=== PATIENT | female | born 1960 | race Caucasian/White ===

== ENCOUNTER → 2016-09-30 | Outpatient (CLI) | payer OTHER ==
--- NOTE | 2016-09-30 09:29 | CT ---
EXAMINATION TYPE: CT abdomen wo con DATE OF EXAM: 09/30/2016 COMPARISON: NONE HISTORY: hiatal hernia CT DLP: 159.1 mGycm Automated exposure control for dose reduction was used. TECHNIQUE: Helical acquisition of images was performed from the lung bases through the top of iliac crest to include entire abdomen. CONTRAST: Performed without Oral Contrast and without IV contrast. FINDINGS: Visualized portions of the lungs are clear. There is no pleural or pericardial fluid. The h eart is not enlarged. There is no significant hiatal hernia. Within the abdomen, the liver, spleen and gallbladder are normal. Both adrenal glands are normal. There is no evidence of hydronephrosis or nephrolithiasis. Limited views of the pancreas are unremarkable. There is mild atheromatous calcification of the aorta. Visualized bowel loops are unremarkable. No free fluid and no free air is seen. No bony destructive lesion is seen. There is a sclerotic focus in the anterior aspect of the superior endplate of L4. This likely represents a bone island. IMPRESSION: 1. NO SIGNIFICANT HIATAL HERNIA. 2. NO ACUTE INFLAMMATORY ABNORMALITY.
== END | disposition home or self-care (01) ==
LOC: RADCTMAIN 08:42
PROVIDERS: ATTEND Family Medicine
DX: R10.9 Unspecified abdominal pain (principal)
CPT/HCPCS: 74150

== ENCOUNTER → 2016-10-26 | Outpatient (CLI) | payer OTHER ==
--- NOTE | 2016-10-26 14:32 | XR ---
EXAMINATION TYPE: XR chest 2V DATE OF EXAM: 10/26/2016 COMPARISON: NONE HISTORY: Chest wall pain, R07.89 TECHNIQUE: Frontal and lateral views of the chest are obtained. FINDINGS: There is no focal air space opacity, pleural effusion, or pneumothorax seen. The cardiac silhouette size is within normal limits. There is a gentle thoracic spinal curvature. The osseous st ructures are intact. IMPRESSION: No acute cardiopulmonary process.
== END | disposition home or self-care (01) ==
LOC: RADXRMAIN 13:20
PROVIDERS: ATTEND Physician Assistant
DX: R07.89 Other chest pain (principal)
CPT/HCPCS: 71020

== ENCOUNTER → 2016-12-11 | Outpatient (CLI) | payer OTHER ==
--- NOTE | 2016-12-11 09:18 | NM ---
EXAMINATION TYPE: NM gastric emptying study DATE OF EXAM: 12/11/2016 COMPARISON: NONE HISTORY: Gastroparesis Following administration of 2.1 mCi Tc 99m Sulfur Colloid with 1 scrambled egg projection images of t he abdomen were obtained 5 minutes post ingestion. When possible, both anterior and posterior project ion images were obtained to allow the calculation of the geometric mean activity. Clearance: 69 % Half-life: 63 minutes min Gastroesophagel reflux: None IMPRESSION: Gastric emptyin% Gastroesophageal reflux: None Gastric emptying normal percentage values: 30 minutes: <70% of retention (> 30% emptying) suggests abnormally fast emptying. 60 minutes: <90% retention (>10% emptying) is normal; less than 30% retention (>70% emptying) suggest s abnormally rapid empying. 90 minutes: <65% retention (> 35% emptying) is normal. 120 minutes: <60% retention (> 40% emptying) is normal. 180 minutes: <30% retention (> 70% emptying) is normal. Gastric emptying T-1/2: Solid: The normal range is 60-105 minutes Liquid only: Normal range is 10-45 minutes. Liquid only-children: At 60 minutes, normal range is 44-58 % . Liquid only-infants: At 60 minutes, normal range is 32-64 %. Additional references: Gastric Emptying Scintigraphy [email or web address]://[email or web address]
== END | disposition home or self-care (01) ==
LOC: RADNMMAIN 07:09
PROVIDERS: ATTEND Surgery
DX: R10.11 Right upper quadrant pain (principal)
CPT/HCPCS: 78264; A9541

== ENCOUNTER 2017-05-21 01:33 | Emergency (ER) | payer OTHER ==
[2017-05-21 01:40] VITALS: BP 199/111; PULSE 78; RESP 18; TEMP 98.1
[2017-05-21] MEDS ORDERED: MORPHINE SULFATE 4 MG/ML SYRINGE IM STA (01:49)
--- NOTE | 2017-05-21 01:53 | ED ---
Fall HPI - General Chief Complaint: Fall Stated Complaint: Fall-Back Pain-JOSE Time Seen by Provider: 05/21/17 01:44 Source: patient Mode of arrival: ambulatory - History of Present Illness Initial Comments: 56-year-old female patient presents to the emergency department today for evaluation of left posterior rib pain. Patient states that she had a fall on Wednesday. States that she slipped down 3 steps on her camper. States that she hit her ribs on the stairs during the fall. States that things seem to be improving over the last couple of days however today she coughed and felt a pop in her left ribs and has been having excruciating pain ever since. Patient states it hurts to take a deep breath. States that it hurts to move or twist. States that it hurts to move her left arm. She denies any hemoptysis or cough. Denies any fevers or chills. She denies any chest pain. Patient denies any headache, neck pain, dizziness, weakness, abdominal pain, nausea, vomiting, or difficulties with bowel movements or urination. - Related Data Home Medications Medication Instructions Recorded Confirmed ALPRAZolam [ALPRAZolam] 0.25 mg PO BID PRN 10/13/13 02/23/14 Atorvastatin [Lipitor] 20 mg PO HS 10/13/13 02/23/14 Previous Rx's Medication Instructions Recorded Aspirin 325 mg PO DAILY #30 tab 02/23/14 HYDROcodone/APAP 7.5-325MG [[place] 1 - 2 each PO Q6HR PRN #60 tab 02/23/14 7.5] Hydrocodone/Acetaminophen [[place] 1 tab PO Q6HR PRN #12 tab 05/21/17 5-325] Allergies Allergy/AdvReac Type Severity Reaction Status Date / Time codeine phosphate Allergy Severe Itching Verified 05/21/17 01:40 [From Tylenol-Codeine #3] tramadol Allergy Mild Itching Verified 05/21/17 01:40 Review of Systems ROS Statement: Those systems with pertinent positive or pertinent negative responses have been documented in the HPI. ROS Other: All systems not noted in ROS Statement are negative. Past Medical History Past Medical History: Hyperlipidemia Additional Past Medical History / Comment(s): knee pain History of Any Multi-Drug Resistant Organisms: None Reported Past Surgical History: Section, Hysterectomy, Orthopedic Surgery Additional Past Surgical History / Comment(s): ABDOMINALPLASTY, LEFT KNEE ARTHROSCOPIC Past Anesthesia/Blood Transfusion Reactions: Motion Sickness Past Psychological History: No Psychological Hx Reported Smoking Status: Current every day smoker Past Alcohol Use History: None Reported Past Drug Use History: Marijuana - Past Family History Mother Family Medical History: Deep Vein Thrombosis (DVT) Father Family Medical History: Cancer General Exam Limitations: no limitations General appearance: alert, in no apparent distress, other (This is a well- developed, well-nourished adult female patient in no acute distress. Vital signs upon presentation are temperature 98.1F, pulse 78, respirations 18, blood pressure 199/111, pulse ox 98% on room air.) Neck exam: Present: normal inspection, full ROM, other. Absent: tenderness, meningismus, lymphadenopathy Respiratory exam: Present: normal lung sounds bilaterally (Nontender, no step- off, no deformity to firm midline palpation of the posterior cervical spine. Full range of motion without pain or limitation.), chest wall tenderness (Left posterior chest wall tenderness). Absent: respiratory distress, wheezes, rales , rhonchi, stridor Cardiovascular Exam: Present: regular rate, normal rhythm, normal heart sounds. Absent: systolic murmur, diastolic murmur, rubs, gallop, clicks GI/Abdominal exam: Present: soft, normal bowel sounds. Absent: distended, tenderness, guarding, rebound, rigid Neurological exam: Present: alert, oriented X3, CN II-XII intact Psychiatric exam: Present: normal affect, normal mood Skin exam: Present: warm, dry, intact, normal color. Absent: rash Course Vital Signs 05/21/17 01:36 Temperature 98.1 F Pulse Rate 78 Respiratory 18 Rate Blood Pressure 199/111 O2 Sat by Pulse 98 Oximetry Medical Decision Making - Medical Decision Making 56-year-old female patient presents to the emergency department today for evaluation of left posterior rib pain. Physical examination did reveal tenderness over the left lateral posterior lower ribs. Lungs are clear to auscultation with good air movement. Chest x-ray with views of the ribs did show a nondisplaced left lateral 10th rib fracture. Lungs showed no acute cardiopulmonary process. Did discuss findings with the patient. We'll provide her with incentive spirometry education. We will give her pain medication. She is educated regarding return parameters. She is instructed to follow-up with her primary care physician for recheck in 1-2 days. She is instructed to return here immediately for any new, worsening, or concerning symptoms. She verbalizes understanding and agrees with this plan. - Lab Data Lab Results 05/21/17 Range/Units 01:52 Urine Color Yellow Urine Appearance Clear (Clear) Urine pH 6.0 (5.0-8.0) Ur Specific [place] 1.012 (1.001-1.035) Urine Protein Negative (Negative) Urine Glucose (UA) Negative (Negative) Urine Ketones Negative (Negative) Urine Blood Negative (Negative) Urine Nitrite Negative (Negative) Urine Bilirubin Negative (Negative) Urine Urobilinogen <2.0 (<2.0) mg/dL Ur Leukocyte Esterase Negative (Negative) - Radiology Data Radiology results: report reviewed, image reviewed 5 views of the chest and left ribs are obtained. Findings show no heart failure nor confluent pneumonic infiltrate. There is no sign of pleural effusion or pneumothorax. There is nondisplaced fracture of the lateral left 10th rib. Impression by Dr. Lynn shows nondisplaced fracture of the left 10th rib. No cardio pulmonary disease. Disposition Clinical Impression: Rib fracture Disposition: HOME SELF-CARE Condition: Good Instructions: Rib Fracture (ED) Additional Instructions: Use incentive spirometer 10 times an hour while awake. Splint painful area with a pillow when coughing or deep breathing. Follow-up with your primary care physician for recheck in 1-2 days. Return here immediately for any new, worsening, or concerning symptoms. Prescriptions: Hydrocodone/Acetaminophen [[place] 5-325] 1 tab PO Q6HR PRN #12 tab PRN Reason: Pain Referrals: Fabricio Fernandez DO [Primary Care Provider] - 1-2 days Time of Disposition: 02:36
[2017-05-21 02:20] LABS: Appearance,Urine Clear (Clear); Bilirubin,Urine Negative (Negative); Blood,Urine Negative (Negative); Color,Urine Yellow; Glucose,Urine (UA) Negative (Negative); Ketones,Urine Negative (Negative); Leukocyte Esterase,Urine Negative (Negative); Protein,Urine Negative (Negative); Specific Gravity,Urine 1.012 (1.001-1.035); Urobilinogen,Urine <2.0 mg/dL (<2.0)
--- NOTE | 2017-05-21 02:27 | XR ---
EXAMINATION TYPE: XR ribs LT w pa chest xray DATE OF EXAM: 05/21/2017 COMPARISON: NONE HISTORY: Fell down the stairs. Chest pain. TECHNIQUE: 5 views FINDINGS: There is no heart failure nor confluent pneumonic infiltrate. There is no sign of pleural e ffusion or pneumothorax. There is nondisplaced fracture of the lateral left 10th rib. IMPRESSION: Nondisplaced fracture left 10th rib. No cardiopulmonary disease.
== END 2017-05-21 02:52 | disposition home or self-care (01) ==
LOC: EC 01:33
DX: S22.32XA Fracture of one rib, left side, initial encounter for closed fracture (principal); E78.5 Hyperlipidemia, unspecified; F17.200 Nicotine dependence, unspecified, uncomplicated; Z79.899 Other long term (current) drug therapy; Z88.5 Allergy status to narcotic agent; W10.9XXA Fall (on) (from) unspecified stairs and steps, initial encounter
CPT/HCPCS: 81003; 71101; 99283; 96372; J2270

== ENCOUNTER 2018-06-29 00:04 | Emergency (ER) | payer OTHER ==
[2018-06-29 00:14] VITALS: RESP 18
[2018-06-29 00:35] LABS: Appearance,Urine Turbid (Clear); Bacteria,Urine Many /hpf; Bilirubin,Urine Negative (Negative); Blood,Urine Moderate (Negative); Color,Urine Dark Red; Glucose,Urine (UA) Negative (Negative); Ketones,Urine Trace (Negative); Leukocyte Esterase,Urine Large (Negative); Nitrite,Urine Negative (Negative); Protein,Urine 3+ (Negative); RBC,Urine >182 /hpf (0-5)
[2018-06-29 00:37] LABS: Specific Gravity,Urine 1.026 (1.001-1.035)
[2018-06-29] MEDS ORDERED: LEVOFLOXACIN 750 MG TAB PO STA (02:11)
[2018-06-29] MEDS ORDERED: PHENAZOPYRIDINE 100 MG TAB PO STA (02:20)
--- NOTE | 2018-06-29 02:23 | ED ---
Female Urogenital HPI - General Chief complaint: Urogenital Stated complaint: poss UTI Time Seen by Provider: 06/29/18 00:11 Source: EMS Mode of arrival: EMS Limitations: no limitations - History of Present Illness Initial comments: This patient is a 58-year-old woman who presents to be evaluated for suprapubic discomfort as well as dysuria. The patient states that she was in her usual state of health until Wednesday morning when she noted she was having urinary frequency. The following day she started having urgency, dysuria, and that over the course of the day developed hematuria as well. She states this feels similar to previous urinary tract infections that she has had. She has not had systemic symptoms, no fever or chills, chest pain, palpitations, lightheadedness. Patient states that she feels like she did pass out once due to the pain associated with urination. MD Complaint: dysuria Onset/Timin -: days(s) Location: suprapubic Radiation: non-radiating Severity: moderate Quality: burning Consistency: constant Improves with: none Worsens with: urination - Related Data Home Medications Medication Instructions Recorded Confirmed ALPRAZolam 0.25 mg PO BID PRN 10/13/13 02/23/14 Atorvastatin [Lipitor] 20 mg PO HS 10/13/13 02/23/14 Previous Rx's Medication Instructions Recorded Aspirin 325 mg PO DAILY #30 tab 02/23/14 HYDROcodone/APAP 7.5-325MG [[place] 1 - 2 each PO Q6HR PRN #60 tab 02/23/14 7.5] Hydrocodone/Acetaminophen [[place] 1 tab PO Q6HR PRN #12 tab 05/21/17 5-325] Ondansetron [Zofran ODT] 4 mg PO Q8HR PRN #10 tab 05/21/17 Levofloxacin 750 mg PO DAILY #6 tablet 06/29/18 Phenazopyridine [Pyridium] 100 mg PO TID #6 tablet 06/29/18 Allergies Allergy/AdvReac Type Severity Reaction Status Date / Time codeine phosphate Allergy Severe Itching Verified 06/29/18 00:14 [From Tylenol-Codeine #3] tramadol Allergy Mild Itching Verified 06/29/18 00:14 Review of Systems ROS Statement: Those systems with pertinent positive or pertinent negative responses have been documented in the HPI. ROS Other: All systems not noted in ROS Statement are negative. Constitutional: Denies: fever, chills Respiratory: Denies: cough, dyspnea Cardiovascular: Denies: chest pain, palpitations, edema Gastrointestinal: Reports: as per HPI, abdominal pain. Denies: nausea, vomiting, diarrhea, constipation Genitourinary: Reports: urgency, dysuria, frequency, hematuria Musculoskeletal: Denies: back pain Skin: Denies: rash Past Medical History Past Medical History: Hyperlipidemia Additional Past Medical History / Comment(s): knee pain, History of Any Multi-Drug Resistant Organisms: None Reported Past Surgical History: Section, Hysterectomy, Orthopedic Surgery Additional Past Surgical History / Comment(s): ABDOMINALPLASTY, LEFT KNEE ARTHROSCOPIC, Past Anesthesia/Blood Transfusion Reactions: Motion Sickness Past Psychological History: No Psychological Hx Reported Smoking Status: Former smoker Past Alcohol Use History: Rare Past Drug Use History: Marijuana - Past Family History Mother Family Medical History: Deep Vein Thrombosis (DVT) Father Family Medical History: Cancer General Exam Limitations: no limitations General appearance: alert, in no apparent distress Respiratory exam: Present: normal lung sounds bilaterally. Absent: respiratory distress, wheezes, rales, rhonchi, stridor Cardiovascular Exam: Present: regular rate, normal rhythm, normal heart sounds. Absent: systolic murmur, diastolic murmur, rubs, gallop GI/Abdominal exam: Present: soft. Absent: distended, tenderness, guarding, rebound, rigid, mass Extremities exam: Absent: pedal edema Skin exam: Present: warm, dry, intact, normal color. Absent: rash Course Vital Signs 06/29/18 06/29/18 00:09 02:39 Temperature 97.8 F 98.0 F Pulse Rate 90 84 Respiratory 18 18 Rate Blood Pressure 143/99 160/92 O2 Sat by Pulse 99 96 Oximetry Medical Decision Making - Medical Decision Making Patient's 58-year-old woman with history and physical exam consistent with urinary tract infection. Urinalysis confirms this. Patient started on antibiotics here as well as Pyridium for symptoms. We discussed appropriate further care and follow-up. On review of systems, the patient did mention some chronic right upper quadrant pain that she had been having what seems to be associated with food and therefore will have the patient follow up with the surgeon on-call for consideration of HIDA scan, the patient does not have any tenderness at the exam today, and the symptoms have been going on for many months. - Lab Data Lab Results 06/29/18 Range/Units 00:18 Urine Color Dark Red Urine Appearance Turbid H (Clear) Urine pH 7.0 (5.0-8.0) Ur Specific [place] 1.026 (1.001-1.035) Urine Protein 3+ H (Negative) Urine Glucose (UA) Negative (Negative) Urine Ketones Trace H (Negative) Urine Blood Moderate H (Negative) Urine Nitrite Negative (Negative) Urine Bilirubin Negative (Negative) Urine Urobilinogen 3.0 (<2.0) mg/dL Ur Leukocyte Esterase Large H (Negative) Urine RBC >182 H (0-5) /hpf Urine WBC >182 H (0-5) /hpf Urine Bacteria Many H (None) /hpf Disposition Clinical Impression: Urinary tract infection Disposition: HOME SELF-CARE Condition: Good Instructions (If sedation given, give patient instructions): Urinary Tract Infection in Women (ED) Additional Instructions: As we discussed, follow-up with Dr. Shannon regarding the possibility of your gallbladder causing the upper abdominal symptoms. Prescriptions: Levofloxacin 750 mg PO DAILY #6 tablet Phenazopyridine [Pyridium] 100 mg PO TID #6 tablet Is patient prescribed a controlled substance at d/c from ED?: No Referrals: Fabricio Fernandez DO [Primary Care Provider] - 1-2 days Terence Shannon MD [Medical Doctor] - 1-2 days
[2018-06-29 02:43] VITALS: BP 160/92; PULSE 84; TEMP 98
== END 2018-06-29 02:43 | disposition home or self-care (01) ==
LOC: EC 00:04 → SUPCPDRO 00:04 → EC 02:43
DX: N39.0 Urinary tract infection, site not specified (principal); R10.11 Right upper quadrant pain; G89.29 Other chronic pain; E78.5 Hyperlipidemia, unspecified; Z87.891 Personal history of nicotine dependence; Z90.710 Acquired absence of both cervix and uterus; Z98.890 Other specified postprocedural states; Z79.899 Other long term (current) drug therapy; Z88.5 Allergy status to narcotic agent
CPT/HCPCS: 81001; 87086; 99284

== ENCOUNTER 2018-07-01 14:15 | Emergency (ER) | payer OTHER ==
[2018-07-01 14:26] VITALS: BP 151/85; PULSE 90; RESP 18; TEMP 97.9
--- NOTE | 2018-07-01 14:49 | ED ---
General Adult HPI - General Chief complaint: Recheck/Abnormal Lab/Rx Stated complaint: bladder infection-revisit Time Seen by Provider: 07/01/18 14:20 Source: patient, RN notes reviewed Mode of arrival: ambulatory Limitations: no limitations - History of Present Illness Initial comments: This is a 58-year-old female who presents emergency department after having had a diagnosis of urinary tract infection 2 days ago. Patient states that she ran out of Pyridium. Patient states that she should've had 3 days worth she only had 2 days worth. Patient comes back in today because she still having burning with urination now that the Pyridium is gone and she is wondering if she gets more pretty. Patient is on Levaquin and the sensitivity for the urinary tract infection is sensitive to Levaquin. She has no abdominal pain patient denies nausea vomiting diarrhea patient denies any fever patient denies any back pain. Patient's only complaint is that it hurts when she urinates. - Related Data Home Medications Medication Instructions Recorded Confirmed ALPRAZolam 0.25 mg PO BID PRN 10/13/13 02/23/14 Atorvastatin [Lipitor] 20 mg PO HS 10/13/13 02/23/14 Previous Rx's Medication Instructions Recorded Aspirin 325 mg PO DAILY #30 tab 02/23/14 HYDROcodone/APAP 7.5-325MG [[place] 1 - 2 each PO Q6HR PRN #60 tab 02/23/14 7.5] Hydrocodone/Acetaminophen [[place] 1 tab PO Q6HR PRN #12 tab 05/21/17 5-325] Ondansetron [Zofran ODT] 4 mg PO Q8HR PRN #10 tab 05/21/17 Levofloxacin 750 mg PO DAILY #6 tablet 06/29/18 Phenazopyridine [Pyridium] 100 mg PO TID #6 tablet 06/29/18 Phenazopyridine HCl [Pyridium] 200 mg PO TID 3 Days tablet 07/01/18 Allergies Allergy/AdvReac Type Severity Reaction Status Date / Time codeine phosphate Allergy Severe Itching Verified 07/01/18 14:26 [From Tylenol-Codeine #3] tramadol Allergy Mild Itching Verified 07/01/18 14:26 Review of Systems ROS Statement: Those systems with pertinent positive or pertinent negative responses have been documented in the HPI. ROS Other: All systems not noted in ROS Statement are negative. Past Medical History Past Medical History: Hyperlipidemia Additional Past Medical History / Comment(s): knee pain, History of Any Multi-Drug Resistant Organisms: None Reported Past Surgical History: Section, Hysterectomy, Orthopedic Surgery Additional Past Surgical History / Comment(s): ABDOMINALPLASTY, LEFT KNEE ARTHROSCOPIC, Past Anesthesia/Blood Transfusion Reactions: Motion Sickness Past Psychological History: No Psychological Hx Reported Smoking Status: Former smoker Past Alcohol Use History: Rare Past Drug Use History: Marijuana - Past Family History Mother Family Medical History: Deep Vein Thrombosis (DVT) Father Family Medical History: Cancer General Exam - General Exam Comments Initial Comments: GENERAL: Patient is well-developed and well-nourished. Patient is nontoxic and well- hydrated and is in mild distress. ENT: Neck is soft and supple. Moist mucous membranes. EYES: The sclera were anicteric and conjunctiva were pink and moist. ABDOMEN: Soft and nontender with normal bowel sounds. No palpable organomegaly was noted. There is no palpable pulsatile mass. SKIN: Skin is clear with no lesions or rashes and otherwise unremarkable. NEUROLOGIC: Patient is alert and oriented x3. Cranial nerves II through XII are grossly intact. Motor and sensory are also intact. Normal speech, volume and content. MUSCULOSKELETAL: Normal extremities with adequate strength and full range of motion. LYMPHATICS: No significant lymphadenopathy is noted PSYCHIATRIC: Normal psychiatric evaluation. Limitations: no limitations Course Vital Signs 07/01/18 14:21 Temperature 97.9 F Pulse Rate 90 Respiratory 18 Rate Blood Pressure 151/85 O2 Sat by Pulse 99 Oximetry Disposition Clinical Impression: Urinary tract infection Disposition: HOME SELF-CARE Instructions (If sedation given, give patient instructions): Urinary Tract Infection in Women (ED) Prescriptions: Phenazopyridine HCl [Pyridium] 200 mg PO TID 3 Days tablet Is patient prescribed a controlled substance at d/c from ED?: No Referrals: Fabricio Fernandez DO [Primary Care Provider] - 1-2 days Time of Disposition: 14:49
[2018-07-01] MEDS ORDERED: cefTRIAXone 1,000 MG VIAL (IM USE) IM STA (14:50)
== END 2018-07-01 15:00 | disposition home or self-care (01) ==
LOC: EC 14:15
DX: N39.0 Urinary tract infection, site not specified (principal); E78.5 Hyperlipidemia, unspecified; Z87.891 Personal history of nicotine dependence; Z88.5 Allergy status to narcotic agent; Z79.899 Other long term (current) drug therapy
CPT/HCPCS: 99283; 96372; J0696

== ENCOUNTER → 2020-09-10 | Outpatient (CLI) | payer OTHER ==
--- NOTE | 2020-09-10 12:04 | US ---
EXAMINATION TYPE: US gallbladder DATE OF EXAM: 09/10/2020 COMPARISON: NONE CLINICAL HISTORY: K81.1 CHRONIC CHOLYCYSTITIS. EXAM MEASUREMENTS: Liver Length: 13.1 cm Gallbladder Wall: 0.2 cm CBD: 0.4 cm Right Kidney: 12.3 x 5.1 x 4.8 cm Pancreas: visualized portions wnl Liver: wnl Gallbladder: No stones seen, mildly distended at 9 cm. Evidence for sonographic Zafar's sign: Yes CBD: wnl Right Kidney: No hydronephrosis or masses seen IMPRESSION: Gallbladder hydrops without wall thickening, cholelithiasis or pericholecystic fluid.
== END | disposition home or self-care (01) ==
LOC: RADUSWWP 07:00
PROVIDERS: ATTEND Surgery Plastic and Reconstructive Surgery
DX: K81.1 Chronic cholecystitis (principal)
CPT/HCPCS: 76705

== ENCOUNTER 2020-09-11 07:45 | Day surgery (SDC) | payer OTHER ==
[2020-09-06 15:02] VITALS: BMI 24.5
[~2020-09-11 07:45] MED LIST: LACTATED RINGERS 1,000 ML IV SCH; LIDOCAINE 1% (10MG/ML) FOR IV START INTRADERMA PRN
--- NOTE | 2020-09-11 07:45 | P.GSHP ---
History of Present Illness H&P Date: 09/11/20 CHIEF COMPLAINT: GERD and colon screen HISTORY OF PRESENT ILLNESS: The patient is a 60-year-old female who presents with gastroesophageal reflux disease and need for colon screen. Upper and lower endoscopy were offered for further evaluation and management. PAST MEDICAL HISTORY: Please see list. PAST SURGICAL HISTORY: Please see list. MEDICATIONS: Please see list. ALLERGIES: Please see list. SOCIAL HISTORY: No illicit drug use FAMILY HISTORY: No reports of Crohn disease or ulcerative colitis. REVIEW OF ORGAN SYSTEMS: CONSTITUTIONAL: No reports of fevers or chills. GI: Denies any blood in stools or constipation. PHYSICAL EXAM: VITAL SIGNS: Stable GENERAL: Well-developed pleasant in no acute distress. HEENT: No scleral icterus. Extraocular movements grossly intact. Moist buccal mucosa. NECK: Supple without lymphadenopathy. CHEST: Unlabored respirations. Equal bilateral excursions. CARDIOVASCULAR: Regular rate and rhythm. Distal 2+ pulses. ABDOMEN: Soft, nondistended. MUSCULOSKELETAL: No clubbing, cyanosis, or edema. ASSESSMENT: 1. Gastroesophageal reflux disease 2. Colon screen. PLAN: 1. Recommend proceeding with an upper and lower endoscopy Past Medical History Past Medical History: GERD/Reflux Additional Past Medical History / Comment(s): hiatal hernia, states right abd pain, occasional constipation History of Any Multi-Drug Resistant Organisms: None Reported Past Surgical History: Section, Hysterectomy, Orthopedic Surgery Additional Past Surgical History / Comment(s): ABDOMINALPLASTY, LEFT KNEE ARTHROSCOPy Past Anesthesia/Blood Transfusion Reactions: No Reported Reaction Additional Past Anesthesia/Blood Transfusion Reaction / Comment(s): sometimes her muscles ache-feels like she was ran over Past Psychological History: No Psychological Hx Reported Smoking Status: Former smoker Past Alcohol Use History: None Reported Additional Past Alcohol Use History / Comment(s): quit smoking 2015, hx of 1 pack every 2 days. Past Drug Use History: None Reported - Past Family History Mother Family Medical History: Deep Vein Thrombosis (DVT) Father Family Medical History: Cancer Medications and Allergies Home Medications Medication Instructions Recorded Confirmed Type No Known Home Medications 09/06/20 09/06/20 History Allergies Allergy/AdvReac Type Severity Reaction Status Date / Time codeine phosphate Allergy Severe Itching Verified 09/06/20 14:44 [From Tylenol-Codeine #3] tramadol Allergy Mild Itching Verified 09/06/20 14:44
[2020-09-11 08:23] VITALS: RESP 16; TEMP 98
[2020-09-11] MEDS ORDERED: GLYCOPYRROLATE 0.2 MG/ML 2 ML VIAL ONE (08:37)
[2020-09-11] MEDS ORDERED: PROPOFOL 10 MG/ML 20 ML VIAL IV ONE (08:37)
[2020-09-11] MEDS ORDERED: LIDOCAINE 1% INJ 10MG/ML (20 ML MDV) ONE (08:37)
--- NOTE | 2020-09-11 09:27 | P.PCN ---
Date of Procedure: 09/11/20 Description of Procedure: PREOPERATIVE DIAGNOSIS: Gastroesophageal reflux disease. POSTOPERATIVE DIAGNOSIS: Gastritis. Gastroesophageal reflux disease. OPERATION: Esophagogastroduodenoscopy with biopsies along antrum. SURGEON: Hannah Sanabria MD ANESTHESIA: MAC. INDICATIONS: The patient is a 60-year-old female who presents with a history of reflux disease. Benefits and risks of the procedure were described. Informed consent was obtained. DESCRIPTION: The patient was brought into the endoscopy suite and laid in the left lateral decubitus position. An Olympus gastroscope was passed along the posterior oropharynx down to the distal esophagus where the squamocolumnar junction was encountered at 40 cm from the incisors. The stomach was entered and no bile reflux was found. Additional findings are listed below. Biopsies with cold forceps were obtained of the antrum. The first through third portion of the duodenum was examined and unremarkable. Retroflexion of the scope confirmed Hill grade 1 lower esophageal valve. The squamocolumnar junction demonstrated LA grade A erosive esophagitis. The stomach was desufflated. The patient tolerated the procedure well. FINDINGS: Squamocolumnar junction 40 cm from the incisors. Diaphragmatic hiatus at 40 cm. Hill grade 4 lower esophageal valve. LA grade A erosive esophagitis. No active duodenitis. Moderate chronic gastritis RECOMMENDATIONS: 1. Start Omeprazole 40 mg daily for 2 weeks
--- NOTE | 2020-09-11 09:31 | P.PCN ---
Date of Procedure: 09/11/20 Description of Procedure: PREOPERATIVE DIAGNOSIS: Abnormal Cologaurd testing POSTOPERATIVE DIAGNOSIS: Tumor adenoma ascending colon Tubular adenoma sigmoid colon OPERATION: Colonoscopy to the ileocecal valve Colonoscopy with hot snare polypectomy SURGEON: Hannah Sanabria MD. ANESTHESIA: MAC. INDICATIONS: The patient is an 60-year-old female who presents with abnormal Cologaurd testing. Benefits and risks were described and informed consent was obtained. DESCRIPTION OF PROCEDURE: The patient had undergone Sutab prep. The patient had been brought into the operating room and laid in the left lateral decubitus position. After adequate intravenous sedation, the rectum was examined with 2% lidocaine jelly. External hemorrhoids were encountered. The rectal tone was within normal limits. No lesions were palpated in the rectal vault. An Olympus colonoscope was advanced until the cecum was viewed. The prep was poor. No sigmoid diverticulosis was encountered. Colonic polyps were found and removed. No evidence of focal colitis was found. Retroflexion of the scope demonstrated grade 2 internal hemorrhoids without active bleeding or inflammation. The colon was desufflated. The patient had tolerated the procedure well. Withdrawal time was over 6 minutes. FINDINGS: Aronchick preparation quality scale 3+ (1-5) Internal hemorrhoids, grade 2 External hemorrhoids, grade 1 No arteriovenous malformations. No sigmoid diverticulosis Removal of 3 polyps: - Snare polypectomy ascending colon, 15 mm tubulovillous adenoma polyp, incomplete piecemeal resection - Snare polypectomy at 15 cm 2, 4 to 5 mm flat villous adenoma polyp. No focal colitis. RECOMMENDATIONS: 1. Patient has poor prep prohibiting complete view of the colon mucosa 2. Large flat villous adenoma at proximal ascending colon with incomplete piecemeal resection, recommend repeat colonoscopy 6 months, February 2021 3. Recommend prolonged bowel prep Plan - Discharge Summary New Discharge Prescriptions: New Omeprazole [PriLOSEC] 40 mg PO DAILY #14 cap Discharge Medication List Omeprazole [PriLOSEC] 40 mg PO DAILY #14 cap 09/11/20 [Rx] Follow up Appointment(s)/Referral(s): Hannah Sanabria MD [STAFF PHYSICIAN] - 10/01/20 Patient Instructions/Handouts: Gastritis (DC), Diet for Stomach Ulcers and Gastritis (ED), Colorectal Polyps (DC) Activity/Diet/Wound Care/Special Instructions: Repeat colonoscopy 6 months, Feb 2021 Discharge Disposition: HOME SELF-CARE
[2020-09-11 09:47] VITALS: BP 131/82; PULSE 66
== END 2020-09-11 10:24 | disposition home or self-care (01) ==
LOC: ORWHC2ENDO 07:45
PROVIDERS: ATTEND Surgery Plastic and Reconstructive Surgery
DX: Z12.11 Encounter for screening for malignant neoplasm of colon (principal); K31.9 Disease of stomach and duodenum, unspecified; K63.5 Polyp of colon; K21.9 Gastro-esophageal reflux disease without esophagitis; D12.2 Benign neoplasm of ascending colon; K22.10 Ulcer of esophagus without bleeding; K29.70 Gastritis, unspecified, without bleeding; K64.1 Second degree hemorrhoids; K64.0 First degree hemorrhoids; D12.5 Benign neoplasm of sigmoid colon; Z87.891 Personal history of nicotine dependence; Z98.891 History of uterine scar from previous surgery; Z90.710 Acquired absence of both cervix and uterus; Z82.49 Family history of ischemic heart disease and other diseases of the circulatory system; Z80.9 Family history of malignant neoplasm, unspecified; Z88.5 Allergy status to narcotic agent
CPT/HCPCS: 88305; 45385; 43239; J2001; J2704

== ENCOUNTER → 2020-10-09 | Outpatient (CLI) | payer OTHER | END | disposition home or self-care (01) | LOC: LABWHC1 13:18 | PROVIDERS: ATTEND Surgery Plastic and Reconstructive Surgery | DX: I10 Essential (primary) hypertension (principal); I49.8 Other specified cardiac arrhythmias; R94.31 Abnormal electrocardiogram [ECG] [EKG] | CPT/HCPCS: 36415; 93005 ==

== ENCOUNTER 2021-01-10 11:14 | Day surgery (SDC) | payer OTHER ==
[2021-01-09 10:54] VITALS: BMI 24.4
--- NOTE | 2021-01-10 07:58 | P.GSHP ---
History of Present Illness H&P Date: 01/10/21 CHIEF COMPLAINT: Cholecystitis HISTORY OF PRESENT ILLNESS: The patient is a 60-year-old female who presents with history of epigastric including right upper quadrant abdominal pain. She underwent diagnostic studies for her gallbladder. Separately her clinical picture was consistent with cholecystitis. Now she presents for surgical intervention. PAST MEDICAL HISTORY: Please see list PAST SURGICAL HISTORY: Please see list MEDICATIONS: Please see list ALLERGIES: Please see list SOCIAL HISTORY: Please see list FAMILY HISTORY: Please see list REVIEW OF ORGAN SYSTEMS: CONSTITUTIONAL: No reports of fevers or chills. HEENT: Denies any troubles with the vision or hearing. ENDOCRINE: No reports of hypothyroidism. No diabetes. RESPIRATORY: No recent pneumonias. CARDIOVASCULAR: Denies chest pain or palpitations GI: No blood in stools or constipation. MUSCULOSKELETAL: Has occasional joint pain including back pain. NEURO: No seizure disorders or headaches. No recent stroke. PSYCH: No depression or suicidal ideation. GENITOURINARY: No active blood in urine. No urinary hesitancy. HEMATOLOGIC: No personal or family history of DVTs or pulmonary emboli. SKIN: No skin cancer. PHYSICAL EXAM: VITAL SIGNS: Afebrile vital signs stable GENERAL: Well-developed pleasant in no acute distress. HEENT: No scleral icterus. Extraocular movements grossly intact. Moist buccal mucosa. NECK: Supple without lymphadenopathy. CHEST: Unlabored respirations. Equal bilateral excursions. CARDIOVASCULAR: Regular rate regular rhythm rhythm. Distal 2+ pulses. ABDOMEN: Soft, nondistended. Tender along the epigastrium and right upper quadrant. MUSCULOSKELETAL: No clubbing, cyanosis, or edema. NEURO: Cranial nerves II to XII within normal limits. No focal or lateralizing signs. PSYCH: Alert and oriented to person, place and time. SKIN: Well-perfused good skin turgor. ASSESSMENT: 1. Epigastric and right upper quadrant abdominal pain 2. Chronic cholecystitis 3. Symptomatic gallstones. PLAN: 1. Will need a robotic cholecystectomy possible open. Benefits and risks were described. 2. Heparin for DVT prophylaxis 5000 units. 3. Antibiotic prophylaxis. Past Medical History Past Medical History: GERD/Reflux Additional Past Medical History / Comment(s): hiatal hernia, states right abd pain, occasional constipation History of Any Multi-Drug Resistant Organisms: None Reported Past Surgical History: Section, Hysterectomy, Orthopedic Surgery Additional Past Surgical History / Comment(s): ABDOMINALPLASTY, LEFT KNEE ART HROSCOPy Past Anesthesia/Blood Transfusion Reactions: No Reported Reaction Additional Past Anesthesia/Blood Transfusion Reaction / Comment(s): Feels lousy when waking up. Smoking Status: Former smoker - Past Family History Mother Family Medical History: Deep Vein Thrombosis (DVT) Father Family Medical History: Cancer Medications and Allergies Home Medications Medication Instructions Recorded Confirmed Type No Known Home Medications 01/09/21 01/09/21 History Allergies Allergy/AdvReac Type Severity Reaction Status Date / Time codeine phosphate Allergy Severe Itching Verified 01/09/21 10:39 [From Tylenol-Codeine #3] tramadol Allergy Mild Itching Verified 01/09/21 10:39
[~2021-01-10 11:14] MED LIST changes: +ACETAMINOPHEN TAB 500 MG TAB PO STA; +DEXAMETHASONE SOD PHOSPHATE 4 MG/ML 1 ML VIAL IV ONE; +GABAPENTIN 300 MG CAP PO STA; +HEPARIN SODIUM,PORCINE/PF 5,000 UNIT/0.5 ML SYRINGE SQ PRN; +INDOCYANINE GREEN 25 MG VIAL IV STA; -LIDOCAINE 1% (10MG/ML) FOR IV START INTRADERMA PRN; +MELOXICAM 7.5 MG TAB PO SCH; +MIDAZOLAM 2 MG/2 ML VIAL IV PRN; +ONDANSETRON 4 MG/2 ML VIAL IVP ONE; +SCOPOLAMINE 1.5MG/72HR PATCH TRANSDERM ONE; +SCOPOLAMINE 1.5MG/72HR PATCH TRANSDERM STA; +fentaNYL (PF) 50 MCG/ML 2 ML AMP IV PRN
[2021-01-10 12:14] LABS: HCT 45.4 % (34.0-46.0); HGB 15.7 gm/dL (11.4-16.0); MCH 31.8 pg (25.0-35.0); MCHC 34.7 g/dL (31.0-37.0); MCV 91.6 fL (80.0-100.0); Mean Platelet Volume 7.4; Platelet Count 270 k/uL (150-450); RBC 4.95 m/uL (3.80-5.40); RDW 13.4 % (11.5-15.5); WBC 7.5 k/uL (3.8-10.6)
[2021-01-10] MEDS ORDERED: LIDOCAINE 1% (10MG/ML) FOR IV START INTRADERMA ONE (12:27)
[2021-01-10] MEDS ORDERED: LABETALOL 5 MG/ML VIAL MDV IVP ONE (12:42)
[2021-01-10 13:58] LABS: ALT 22 U/L (4-34); AST 24 U/L (14-36); African American GFR (CKD) >90 (>60 ml/min/1.73 sqM); Albumin 4.4 g/dL (3.5-5.0); Alkaline Phosphatase 46 U/L (38-126); Anion Gap 7 mmol/L; Blood Urea Nitrogen 16 mg/dL (7-17); Calcium 9.7 mg/dL (8.4-10.2); Carbon Dioxide 23 mmol/L (22-30); Chloride 108 mmol/L (98-107); Glucose 108 mg/dL (74-99); Non-African American GFR(CKD) >90 (>60 ml/min/1.73 sqM); Sodium 138 mmol/L (137-145); Total Bilirubin 0.4 mg/dL (0.2-1.3); Total Protein 7.5 g/dL (6.3-8.2)
[2021-01-10] MEDS ORDERED: ROCURONIUM 10 MG/ML (5 ML VIAL) IV ONE (13:59)
[2021-01-10] MEDS ORDERED: INDOCYANINE GREEN 25 MG VIAL IV ONE (13:59)
[2021-01-10] MEDS ORDERED: GLYCOPYRROLATE 0.2 MG/ML 2 ML VIAL ONE (13:59)
[2021-01-10] MEDS ORDERED: NEOSTIGMINE 1 MG/ML 10 ML VIAL ONE (13:59)
[2021-01-10] MEDS ORDERED: MIDAZOLAM 2 MG/2 ML VIAL ONE (13:59)
[2021-01-10] MEDS ORDERED: SUCCINYLCHOLINE CHLORIDE 100 MG/5 ML SYR IV ONE (13:59)
[2021-01-10] MEDS ORDERED: LIDOCAINE 1% INJ 10MG/ML (20 ML MDV) ONE (13:59)
[2021-01-10] MEDS ORDERED: KETOROLAC 15 MG/ML 1 ML VIAL ONE (13:59)
[2021-01-10] MEDS ORDERED: ePHEDrine 50 MG/ML 1 ML AMP ONE (13:59)
[2021-01-10] MEDS ORDERED: PROPOFOL 10 MG/ML 50 ML VIAL IV ONE (13:59)
[2021-01-10] MEDS ORDERED: fentaNYL (PF) 50 MCG/ML 2 ML AMP ONE (13:59)
[2021-01-10] MEDS ORDERED: BUPIVACAINE (PF) 0.5% 30 ML VIAL SQ ONE (14:26)
--- NOTE | 2021-01-10 15:10 | P.OP ---
Date of Procedure: 01/10/21 Description of Procedure: SURGEON: HANNAH SANABRIA MD PREOPERATIVE DIAGNOSES: 1. Symptomatic gallstone 2. Right upper quadrant abdominal pain POSTOPERATIVE DIAGNOSES: 1. Symptomatic gallstone 2. Right upper quadrant abdominal pain 3. Chronic cholecystitis 4. Peritoneal adhesions, right upper quadrant OPERATION: 1. Robotic-assisted da Rae Xi laparoscopic cholecystectomy, multiport with FIREFLY 2. Robotic-assisted da Rae Xi laparoscopic lysis of adhesions ESTIMATED BLOOD LOSS: 5 mL. SPECIMENS REMOVED: Gallbladder. COMPLICATIONS: None. OPERATIVE FINDINGS: 1. Moderate scarring over entire gallbladder with peritoneal adhesions, pericholecystic with features of chronic cholecystitis INDICATIONS: The patient is a 60-year-old female who presents with symptomatic gallstones. Robotic assisted laparoscopic approach was described. Benefits and risks of the procedure including but not limited to bleeding, infection, injury to the biliary tree was described. Informed consent was obtained. DESCRIPTION OF PROCEDURE: Patient was brought to the operating room, placed in supine position. After general induction, the abdomen had been prepped and draped in standard sterile fashion. The robotic da Rae XI system was primed. After a timeout protocol was performed, the patient had been prepped and draped in standard sterile fashion. The patient was injected with indocyanine green. A 5 mm 0 degrees laparoscopic trocar entry was performed along the left upper quadrant. The abdomen insufflated to 15 mmHg pressure which was tolerated well. Diagnostic laparoscopy demonstrated no injury to bowel viscera or mesentery. The liver surface was unremarkable. Next, two 8 mm robotic ports were placed along the right upper abdomen. The camera 8-mm port was maintained along the epigastrium. Another 8 mm port was placed along the left upper abdominal wall a fter exchanging the 5 mm port. Please note that the ports were placed at least 10 to 15 cm away from the target anatomy of the gallbladder. The robot was docked along the left lateral abdomen. The patient was repositioned in reverse Trendelenburg position. Using a grasper for arm 3, a grasper for arm 4, including hook cautery for arm 1, the robotic system was docked and primed as described. Instruments were interchanged by the medical assistant per diem including hook cautery, Bovie cautery and clip appliers. I had sat at the console. The gallbladder was scarred with peritoneal adhesions. Lysis of adhesions was performed to free the gallbladder from the surrounding tissues. Next attention was brought to the infundibulum and cystic structures. The infundibulum and cystic duct were dissected free from surrounding tissues. The cystic duct was isolated. FIREFLY was used to identify the cystic artery and cystic structures. A critical view of safety was obtained. Large PLASTIC clips were used throughout the entire case. Using a clip roll forming supervisor, 2 clips were placed at the junction of the infundibulum and cystic duct. The cystic duct was divided between clips. Next, the cystic artery was similarly clipped and cauterized. Electro-Bovie cautery was used to remove the gallbladder from the hepatic fossa. Hemostasis was checked and found to be adequate. The robot was undocked. I re-scrubbed into the case. Using a 10 mm Endo Catch bag via the left upper quadrant incision, the specimen was removed from the abdominal cavity. All pneumoperitoneum instruments were evacuated from the abdominal cavity. The incisions were reapproximated using 4-0 Monocryl in an interrupted subcuticular fashion. Fascial defects were less than 8 mm in size. Please note along the trocar sites, local anesthetic was placed as a field block prior to insertion of all instruments. Liquid glue was applied to the skin. At the end of the procedure needle, sponge, and instrument count had been verified correct by the certified surgical tech/first assistant. The patient was transferred to postanesthesia care unit in stable condition. Intraoperative films were shared with the patient's family. Plan - Discharge Summary Discharge Rx Participant: Yes New Discharge Prescriptions: New Simethicone [Gas-X] 125 mg PO AC-TID PRN #20 capsule PRN Reason: Pain Ibuprofen [Motrin] 600 mg PO Q8HR PRN #30 tab PRN Reason: Pain Acetaminophen Tab [Tylenol Tab] 1,000 mg PO Q6HR PRN #30 tablet PRN Reason: Pain Discharge Medication List Acetaminophen Tab [Tylenol Tab] 1,000 mg PO Q6HR PRN #30 tablet 01/10/21 [Rx] Ibuprofen [Motrin] 600 mg PO Q8HR PRN #30 tab 01/10/21 [Rx] Simethicone [Gas-X] 125 mg PO AC-TID PRN #20 capsule 01/10/21 [Rx] Follow up Appointment(s)/Referral(s): Hannah Sanabria MD [STAFF PHYSICIAN] - 01/14/21 Patient Instructions/Handouts: Laparoscopic Cholecystectomy (DC), Low Fat Diet (DC), *[facility] - Managing Your Pain After Surgery Without Opioids Activity/Diet/Wound Care/Special Instructions: Recommend low-fat diet for the next 2 days. No lifting over 10 pounds in 2 weeks until Jan 24. July shower. No bath tub soaks for two weeks until Jan 24.. Diet as tolerated. Use Tylenol, simethicone and ibuprofen or Aleve scheduled for the next 24-48 hours for best pain relief. Use ice along incisions for today to prevent swelling. Discharge Disposition: HOME SELF-CARE
[2021-01-10 15:21] VITALS: TEMP 96.8
[2021-01-10 15:34] VITALS: RESP 16
[2021-01-10 16:32] VITALS: BP 170/89; PULSE 64
== END 2021-01-10 16:47 | disposition home or self-care (01) ==
LOC: OR 11:14
PROVIDERS: ATTEND Surgery Plastic and Reconstructive Surgery
DX: K80.10 Calculus of gallbladder with chronic cholecystitis without obstruction (principal); K66.0 Peritoneal adhesions (postprocedural) (postinfection); K21.9 Gastro-esophageal reflux disease without esophagitis; K44.9 Diaphragmatic hernia without obstruction or gangrene; Z98.891 History of uterine scar from previous surgery; Z90.710 Acquired absence of both cervix and uterus; Z98.890 Other specified postprocedural states; Z87.891 Personal history of nicotine dependence; Z82.49 Family history of ischemic heart disease and other diseases of the circulatory system; Z80.9 Family history of malignant neoplasm, unspecified; Z88.5 Allergy status to narcotic agent
CPT/HCPCS: 80053; 85027; 47563; J2250; J1100; J2710; J0690; J2405; J2001; J3010; J1885; J0330; J2704; J1644; 88304

== ENCOUNTER 2023-12-30 12:13 | Inpatient (IN) | payer OTHER ==
--- NOTE | 2023-12-30 13:41 | ED ---
Chest Pain HPI - General Chief Complaint: Chest Pain Stated Complaint: Chest Pain Time Seen by Provider: 12/30/23 13:17 Source: patient, RN notes reviewed, old records reviewed Mode of arrival: wheelchair Limitations: no limitations - History of Present Illness Initial Comments: This is a 63-year-old female to the ER for evaluation today. Patient coming in for chest pain and shortness of breath significant episode of chest pain with diaphoresis history of smoking no other cardiac risk factors MD Complaint: chest pain, other (Paresis and shortness of breath) -: hour(s) Onset: during rest, during exertion Pain Location: substernal, left chest Pain Radiation: LUE Severity: moderate Severity scale (1-10): 4 Quality: tightness Consistency: constant Improves With: nothing Worsens With: nothing Anginal Symptoms: diaphoresis, dyspnea, sense of impending doom Other Symptoms: palpitations Treatments Prior to Arrival: none - Related Data Previous Rx's Medication Instructions Recorded Aspirin 81 mg PO DAILY #60 tab 12/31/23 Clopidogrel [Plavix] 75 mg PO DAILY #60 tablet 12/31/23 Isosorbide Mononitrate ER [Imdur] 30 mg PO DAILY #60 tab 12/31/23 Metoprolol Tartrate [Lopressor] 12.5 mg PO BID 30 Days #60 tablet 12/31/23 Allergies Allergy/AdvReac Type Severity Reaction Status Date / Time codeine phosphate Allergy Severe Itching Verified 12/30/23 14:27 [From Tylenol-Codeine #3] tramadol Allergy Mild Itching Verified 12/30/23 14:27 Review of Systems ROS Statement: Those systems with pertinent positive or pertinent negative responses have been documented in the HPI. ROS Other: All systems not noted in ROS Statement are negative. EKG Findings - EKG Comments: EKG Findings:: EKG is Sinus bradycardia 52 WV 173 QRS 83 QTc 443 - EKG Results: EKG: interpreted by RICHARD Past Medical History Past Medical History: GERD/Reflux Additional Past Medical History / Comment(s): hiatal hernia, states right abd pain, occasional constipation History of Any Multi-Drug Resistant Organisms: None Reported Past Surgical History: Section, Hysterectomy, Orthopedic Surgery Additional Past Surgical History / Comment(s): ABDOMINALPLASTY, LEFT KNEE ARTHROSCOPy Past Anesthesia/Blood Transfusion Reactions: No Reported Reaction Additional Past Anesthesia/Blood Transfusion Reaction / Comment(s): sometimes her muscles ache-feels like she was ran over Past Psychological History: No Psychological Hx Reported Smoking Status: Current every day smoker Past Alcohol Use History: None Reported Past Drug Use History: Marijuana - Past Family History Mother Family Medical History: Deep Vein Thrombosis (DVT) Father Family Medical History: Cancer General Exam Limitations: no limitations General appearance: alert, in no apparent distress, anxious Head exam: Present: atraumatic, normocephalic, normal inspection Eye exam: Present: normal appearance, PERRL, EOMI. Absent: scleral icterus, conjunctival injection, periorbital swelling ENT exam: Present: normal exam, mucous membranes moist Neck exam: Present: normal inspection. Absent: tenderness, meningismus, lymphadenopathy Respiratory exam: Present: normal lung sounds bilaterally. Absent: respiratory distress, wheezes, rales, rhonchi, stridor Cardiovascular Exam: Present: regular rate, normal rhythm, normal heart sounds. Absent: systolic murmur, diastolic murmur, rubs, gallop, clicks GI/Abdominal exam: Present: soft, normal bowel sounds. Absent: distended, tenderness, guarding, rebound, rigid Extremities exam: Present: normal inspection, full ROM, normal capillary refill. Absent: tenderness, pedal edema, joint swelling, calf tenderness Back exam: Present: normal inspection Neurological exam: Present: alert, oriented X3, CN II-XII intact Psychiatric exam: Present: normal affect, normal mood Skin exam: Present: warm, dry, intact, normal color. Absent: rash Course Vital Signs 12/30/23 12/30/23 12/30/23 12:24 17:33 18:00 Temperature 97.7 F Pulse Rate 51 L 63 65 Pulse Rate [ Pulse Oximetery ] Respiratory 18 22 20 Rate Blood Pressure 127/66 118/67 107/68 Blood Pressure [Left Arm Sitting] O2 Sat by Pulse 97 98 97 Oximetry 12/30/23 12/30/23 12/30/23 20:14 21:07 23:43 Temperature Pulse Rate 68 56 L 56 L Pulse Rate [ Pulse Oximetery ] Respiratory 22 18 16 Rate Blood Pressure 110/70 111/75 Blood Pressure [Left Arm Sitting] O2 Sat by Pulse 98 96 Oximetry 12/31/23 12/31/23 12/31/23 04:00 06:36 08:10 Temperature 98.0 F Pulse Rate 53 L 56 L 56 L Pulse Rate [ Pulse Oximetery ] Respiratory 16 16 17 Rate Blood Pressure 105/74 106/68 123/72 Blood Pressure [Left Arm Sitting] O2 Sat by Pulse 95 95 98 Oximetry 12/31/23 12/31/23 10:37 11:02 Temperature Pulse Rate 57 L Pulse Rate [ 50 L Pulse Oximetery ] Respiratory 18 18 Rate Blood Pressure 125/73 Blood Pressure 130/72 [Left Arm Sitting] O2 Sat by Pulse 98 95 Oximetry - Reevaluation(s) Reevaluation #1: 12/30/23 14:19 Medical records reviewed Reevaluation #2: 12/30/23 14:19 Patient symptoms unchanged Reevaluation #3: 12/30/23 14:19 Patient informed of results and questions answered Reevaluation #4: Was pt. sent in by a medical professional or institution ([facility], [employer] DEVELOPER, urgent care, hospital, or senior living...) When possible be specific @ -no Did you speak to anyone other than the patient for history (EMS, parent, family, police, friend...)? What history was obtained from this source @ -no Did you review nursing and triage notes (agree or disagree)? Why? @ -agree Are old charts reviewed (outside hosp., previous admission, EMS record, old EKG, old radiological studies, urgent care reports/EKG's, senior living records)? Report findings @ -yes Differential Diagnosis (chest pain, altered mental status, abdominal pain women, abdominal pain men, vaginal bleeding, weakness, fever, dyspnea, syncope, headache, dizziness, GI bleed, back pain, seizure, CVA, palpatations, mental health, musculoskeletal)? @ -prior EKG interpreted by me (3pts min.). @ -yes X-rays interpreted by me (1pt min.). @ -yes negative for acute disease CT interpreted by me (1pt min.). @ -no U/S interpreted by me (1pt. min.). @ -no What testing was considered but not performed or refused? (CT, X-rays, U/S, labs)? Why? @ -none What meds were considered but not given or refused? Why? @ -none Did you discuss the management of the patient with other professionals (professionals i.e. [facility], [employer] JAVA DEVELOPER, lab, RT, psych nurse, social service assistant, chart picker, teacher, accounts officer, vocational case manager)? Give summary @ -no Was smoking cessation discussed for >3mins.? @ -no Was critical care preformed (if so, how long)? @ -yes31 Were there social determinants of health that impacted care today? How? (Homelessness, low income, unemployed, alcoholism, drug addiction, transportation, low edu. Level, literacy, decrease access to med. care, ch[facility], rehab)? @ -none Was there de-escalation of care discussed even if they declined (Discuss DNR or withdrawal of care, Hospice)? DNR status @ -no What co-morbidities impacted this encounter? (DM, HTN, Smoking, COPD, CAD, Cancer, CVA, ARF, Chemo, Hep., AIDS, mental health diagnosis, sleep apnea, morbid obesity)? @ -none Was patient admitted / discharged? Hospital course, mention meds given and route, prescriptions, significant lab abnormalities, going to OR and other pertinent info. @ - 63 female to the ER for evaluation patient presents to ER with chest pain patient has non-ST elevated [place] and patient has persistent chest pain here in the ER will admit for ACS Admit Undiagnosed new problem with uncertain prognosis? @ -no Drug Therapy requiring intensive monitoring for toxicity (Heparin, Nitro, Insulin, Cardizem)? @ -no Were any procedures done? @ -no Diagnosis/symptom? @ -Non-STEMI ACS Acute, or Chronic, or Acute on Chronic? @ -Acute Uncomplicated (without systemic symptoms) or Complicated (systemic symptoms)? @ -Complicated Side effects of treatment? @ -no Exacerbation, Progression, or Severe Exacerbation? @ -exacerbation Poses a threat to life or bodily function? How? (Chest pain, [place], [place], pneumonia, PE, COPD, DKA, ARF, appy, cholecystitis, CVA, Diverticulitis, Homicidal, Suicidal, threat to staff... and all critical care pts) @ -yes non-ST elevated [place] Reevaluation #5: Differential Chest Pain: Stable Angina, Unstable Angina, STEMI, NSTEMI Aortic Dissection, Pneumothorax, Musculoskeletal, Esophageal Spasm GERD, Cholecystitis, Pancreatitis, Zoster, this is not meant to be an all-inclusive list. - Consultations Consultation #1: Admitting physicians who agreed to admit this patient Chest Pain MDM - MDM 63 female to the ER for evaluation patient presents to ER with chest pain patient has non-ST elevated [place] and patient has persistent chest pain here in the ER will admit for ACS Critical Care Time Critical Care Time: Yes Total Critical Care Time: 31 Disposition Clinical Impression: Acute non-ST elevation myocardial infarction (NSTEMI), Chest pain Disposition: ADMITTED IP TO THIS HOSP Condition: Critical Is patient prescribed a controlled substance at d/c from ED?: No Time of Disposition: 16:10
[2023-12-30] MEDS: methylPREDNISolone SOD SUCCI 125 MG/2 ML VIAL IV STA (13:59)
[2023-12-30] MEDS: IPRATROPIUM-ALBUTEROL 3 ML NEB INHALATION STA (14:00)
[2023-12-30] MEDS: SODIUM CHLORIDE 0.9% 1,000 ML IV STA (14:01)
[2023-12-30 14:05] LABS: Basophils % (A) 0 %; Eosinophils # (A) 0.1 k/uL (0-0.7); Eosinophils % (A) 1 %; HCT 47.6 % (34.0-46.0); HGB 15.6 gm/dL (11.4-16.0); Lymphocytes # (A) 1.2 k/uL (1.0-4.8); Lymphocytes % (A) 14 %; MCHC 32.7 g/dL (31.0-37.0); MCV 97.8 fL (80.0-100.0); Mean Platelet Volume 7.5; Monocytes # (A) 0.4 k/uL (0-1.0); Monocytes % (A) 5 %; Neutrophils # (A) 6.9 k/uL (1.3-7.7); Neutrophils % (A) 79 %; Platelet Count 210 k/uL (150-450); RBC 4.87 m/uL (3.80-5.40); RDW 12.9 % (11.5-15.5); WBC 8.7 k/uL (3.8-10.6)
[2023-12-30 14:19] LABS: ALT 35 U/L (4-34); African American GFR (CKD) >90 (>60 ml/min/1.73 sqM); Albumin 4.5 g/dL (3.5-5.0); Anion Gap 7 mmol/L; Blood Urea Nitrogen 19 mg/dL (7-17); Calcium 9.3 mg/dL (8.4-10.2); Carbon Dioxide 22 mmol/L (22-30); Chloride 109 mmol/L (98-107); Glucose 100 mg/dL (74-99); Non-African American GFR(CKD) >90 (>60 ml/min/1.73 sqM); Sodium 138 mmol/L (137-145); Total Bilirubin 0.8 mg/dL (0.2-1.3); Total Protein 7.2 g/dL (6.3-8.2)
[2023-12-30 14:22] LABS: AST 37 U/L (14-36); Alkaline Phosphatase 31 U/L (38-126); Magnesium 1.9 mg/dL (1.6-2.3); Potassium 4.6 mmol/L (3.5-5.1)
[2023-12-30 14:27] LABS: NT-Pro-B-Type Natriuretic Pept 356 pg/mL
[2023-12-30 14:36] LABS: INR 0.9 (<1.2); Partial Thromboplastin Time 25.6 sec (22.0-30.0); Prothrombin Time 10.4 sec (10.0-12.5)
[2023-12-30] MEDS: LORazepam 2 MG/ML INJ IV STA ×2 (15:04→23:55)
--- NOTE | 2023-12-30 16:05 | XR ---
EXAMINATION TYPE: XR chest 2V DATE OF EXAM: 12/30/2023 COMPARISON: 05/21/2017 INDICATION: Difficulty breathing TECHNIQUE: Single frontal view of the chest is obtained. FINDINGS: The heart size is normal. The pulmonary vasculature is normal. Very minimal blunting of the right costophrenic angle is evident. Lungs otherwise are clear. IMPRESSION: 1. Minimal right costophrenic angle pleural effusion [facility] Azra Townsend, Workstation: [facility], 12/30/2023 4:02 PM
[2023-12-30] MEDS ORDERED: MORPHINE SULFATE 4 MG/ML SYRINGE IV PRN (16:11)
[2023-12-30] MEDS ORDERED: NITROGLYCERIN SL TABS 0.4 MG TAB SUBLINGUAL PRN (16:11)
[2023-12-30] MEDS: ASPIRIN 81 MG PO STA (16:54)
[2023-12-30] MEDS: HEPARIN SOD,PORK IN 0.45% NACL 25,000 UNIT in 0.45% NACL 1 250ML.BAG IV SCH (17:00)
[2023-12-30] MEDS: HEPARIN SODIUM 1,000 UN/ML (10ML VL) IV ONE (17:04)
[2023-12-30] MEDS: LORazepam 2 MG/ML INJ IV PRN (17:30)
[2023-12-30] MEDS: METOPROLOL TARTRATE 25 MG TAB PO SCH (21:03)
[2023-12-31] MEDS: HEPARIN SODIUM 1,000 UN/ML (10ML VL) IV PRN (00:14)
[2023-12-31 04:59] LABS: Platelet Count 187 k/uL (150-450)
[2023-12-31] MEDS ORDERED: ALPRAZolam 0.25 MG TAB PO PRN (07:52)
[2023-12-31] MEDS ORDERED: NITROGLYCERIN SL TABS 0.4 MG TAB SUBLINGUAL PRN (07:52)
[2023-12-31] MEDS ORDERED: ALPRAZolam 0.5 MG TAB PO PRN (07:52)
[2023-12-31] MEDS: ATORVASTATIN 80 MG TAB PO SCH ×2 (08:21→16:46)
[2023-12-31] MEDS: ASPIRIN 81 MG PO SCH (08:21)
[2023-12-31] MEDS: ATORVASTATIN 80 MG TAB PO STA (08:21)
[2023-12-31] MEDS: ASPIRIN 325 MG TAB PO STA (08:31)
[2023-12-31] MEDS: SODIUM CHLORIDE 0.9% 1,000 ML in EMPTY BAG 1 BAG IV SCH (08:31)
[2023-12-31] MEDS ORDERED: ASPIRIN 325 MG TAB PO SCH (09:00)
[2023-12-31] MEDS: MIDAZOLAM 2 MG/2 ML VIAL IVP ONE (09:55)
[2023-12-31] MEDS: fentaNYL (PF) 50 MCG/1 ML VIAL IVP ONE (09:55)
[2023-12-31] MEDS: IV FLUID CONTINUATION 1,000 ML IV ONE (09:55)
[2023-12-31] MEDS: LIDOCAINE 1% INJ 10MG/ML (20 ML MDV) SQ ONE (09:57)
[2023-12-31] MEDS: VERAPAMIL SYRINGE (5 MG/10 ML) INTRAARTER ONE (10:01)
[2023-12-31] MEDS: HEPARIN SODIUM 1,000 UN/ML (10ML VL) IVP ONE (10:02)
[2023-12-31] MEDS: IOPAMIDOL-370 100ML BTL INJ ONE (10:21)
[2023-12-31] MEDS: HEPARIN SODIUM,PORCINE (1 ML) 2,500 UNIT in SODIUM CHLORIDE 0.9% 250 ML IRRIGATION PRN (10:22)
[2023-12-31] MEDS: HEPARIN SODIUM,PORCINE 10,000 UNIT in SODIUM CHLORIDE 0.9% 1,000 ML IRRIGATION PRN (10:22)
[2023-12-31 10:31] VITALS: TEMP 98
[2023-12-31 10:39] VITALS: RESP 18
--- NOTE | 2023-12-31 10:46 | CC ---
CARDIAC CATHETERIZATION REPORT INDICATION: Acute mxh-OO-gbexarx elevation MS. PROCEDURE NOTE: After obtaining informed consent, left heart catheterization and coronary angiogram were performed via the right radial artery using standard Alonzo catheter. The patient tolerated the procedure well without any obvious immediate complications. Right radial artery access was obtained using Seldinger technique. A 6-Mauritian sheath was placed. Catheters and wires were floated into the ascending aorta under fluoroscopic guidance. She was given verapamil and heparin per protocol. The patient received moderate conscious sedation. Total sedation time was 17 minutes. FINDINGS: 1. Hemodynamics: Left ventricular end-diastolic pressure is 18 mm. There is no significant gradient across the aortic valve. 2. Left ventriculogram: Left ventriculogram is not performed. 3. Angiographic data: a.Right coronary artery is a small nondominant vessel, shows mild diffuse disease. b.Left main coronary artery is a normal-sized vessel. It trifurcates into LAD, ramus intermedius, and circumflex coronary artery. Ramus intermedius has a focal 95% stenosis in the ostial portion. Circumflex coronary artery and its branches are free of significant stenosis. LAD and its branches are free of significant stenosis. CONCLUSIONS: Severe ostial stenosis involving what appears like ramus intermedius. PLAN: Dr. Mcclain, the on-call wildlife technician has reviewed the angiographic data. He felt that balloon angioplasty and stenting of the ramus is high-risk and we could put the LAD in jeopardy, hence he suggested medical therapy. We will treat the patient with aspirin, nitrates, statins, Plavix, beta blockers, and see how she does. If she remains chest pain free, we will ambulate her and may be discharge her home on Wednesday and continue to follow her as outpatient. If she has further episodes of chest pain, then the patient will undergo a high-risk angioplasty. MMODL / IJN: [id number] /
[2023-12-31 11:02] LABS: Chol/HDL Ratio 4.23 Ratio; LDL Cholesterol,Calculated 148.7 mg/dL (0.0-131.0); VLDL Calculation 13.94 mg/dL (5.00-40.00)
--- NOTE | 2023-12-31 11:10 | P.CRDCN ---
History of Present Illness History of present illness: HISTORY OF PRESENT ILLNESS: This is a 63-year-old female with a past medical history significant for nicotine dependence. Patient used to follow in the office with Dr. Cisse but has not been seen since 2020. We have been asked to see the patient in consultation for non-STEMI. Patient examined at the bedside the emergency room. Patient's family is at the bedside. Patient states yesterday she had just moved a camper with her family and was getting things set up. She states she began to have chest pain in the middle of her chest. She also reports feeling diaphoretic and nauseated. She states that she went to sit down to rest. She states that she had worsening nausea and felt as though she was going to pass out. EMS was called and the patient was brought to the hospital for further evaluation. She was found to have elevated troponins and was started on IV heparin. The patient currently denies any chest pain or pressure at the time of examination. She is a current cigarette smoker. She reports occasional marijuana use. Denies any alcohol use. She does report a family history of CAD. DIAGNOSTICS: -Most recent EKG performed this morning in the emergency room revealed sinus bradycardia with T wave inversions in inferior and lateral leads - Chest xray minimal right costophrenic angle pleural effusion - Laboratory data: WBC 8.7. Hemoglobin 15.6. Platelet count 210. Sodium 138. Potassium 4.6. BUN 19. Creatinine 0.63. Magnesium 1.9. AST 37. ALT 35. Tr oponin 0.625. 1.800. 2.280. proBNP 356. - Current home cardiac medications include none - Patient underwent stress echo in November 2020 in the office which was negative for ischemia REVIEW OF SYSTEMS: At the time of my exam: CONSTITUTIONAL: Denies fever or chills. HEENT: Denies blurred vision, vision changes, or eye pain. Denies hemoptysis CARDIOVASCULAR: Denies chest pain. Denies orthopnea. Denies PND. Denies palpitations RESPIRATORY: Denies shortness of breath. GASTROINTESTINAL: Denies abdominal pain. Denies nausea or vomiting. HEMATOLOGIC: Denies bleeding disorders. GENITOURINARY: Denies any blood in urine. SKIN: Denies pruitis. Denies rash. PHYSICAL EXAM: VITAL SIGNS: Reviewed. GENERAL: Well-developed in no acute distress. HEENT: Head is normocephalic. Pupils are equal, round. Sclerae anicteric. Mucous membranes of the mouth are moist. Neck supple. No JVD or thyromegaly LUNGS: Respirations even and unlabored. Lungs essentially clear to auscultation bilaterally. HEART: Regular rate and rhythm. S1 and S2 heard. ABDOMEN: Soft. Nondistended. Nontender. EXTREMITIES: Normal range of motion. No clubbing or cyanosis. Peripheral pulses intact. No lower extremity edema NEUROLOGIC: Awake and alert. Oriented x 3. ASSESSMENT: Non-STEMI Sinus bradycardia Nicotine dependence Occasional marijuana use PLAN: Obtain 2D echo to assess cardiac structure and function Begin aspirin 81 mg daily and atorvastatin 80 mg at night. Obtain lipid panel. Patient has been started on metoprolol tartrate 25 mg twice a day. However she is bradycardic this morning. Will decrease dose to 12.5 mg twice a day Continue telemetry monitoring Patient to undergo cardiac catheterization this morning with Dr. Cisse. Patient states she is agreeable to stenting if needed. However she adamantly refuses open heart surgery. Smoking cessation recommended. Patient to be referred to [place] quit line upon discharge. Discontinue IV heparin as patient will undergo heart cath this morning Further recommendations pending patient course Nurse practitioner note has been reviewed by physician. Signing provider agrees with the documented findings, assessment, and plan of care documented by [employer]PER as a scribe. Past Medical History Past Medical History: GERD/Reflux Additional Past Medical History / Comment(s): hiatal hernia, states right abd pain, occasional constipation History of Any Multi-Drug Resistant Organisms: None Reported Past Surgical History: Section, Hysterectomy, Orthopedic Surgery Additional Past Surgical History / Comment(s): ABDOMINALPLASTY, LEFT KNEE ARTHROSCOPy Past Anesthesia/Blood Transfusion Reactions: No Reported Reaction Additional Past Anesthesia/Blood Transfusion Reaction / Comment(s): sometimes her muscles ache-feels like she was ran over Past Psychological History: No Psychological Hx Reported Smoking Status: Current every day smoker Past Alcohol Use History: None Reported Past Drug Use History: Marijuana - Past Family History Mother Family Medical History: Deep Vein Thrombosis (DVT) Father Family Medical History: Cancer Medications and Allergies Home Medications Medication Instructions Recorded Confirmed Type No Known Home Medications 12/30/23 12/30/23 History Allergies Allergy/AdvReac Type Severity Reaction Status Date / Time codeine phosphate Allergy Severe Itching Verified 12/30/23 14:27 [From Tylenol-Codeine #3] tramadol Allergy Mild Itching Verified 12/30/23 14:27 Physical Exam Vitals: Vital Signs Temp Pulse Resp BP Pulse Ox 12/31/23 10:37 57 L 18 125/73 98 12/31/23 08:10 98.0 F 56 L 17 123/72 98 12/31/23 06:36 56 L 16 106/68 95 12/31/23 04:00 53 L 16 105/74 95 12/30/23 23:43 56 L 16 111/75 96 12/30/23 21:07 56 L 18 12/30/23 20:14 68 22 110/70 98 12/30/23 18:00 65 20 107/68 97 12/30/23 17:33 63 22 118/67 98 12/30/23 12:24 97.7 F 51 L 18 127/66 97 Intake and Output 12/30/23 12/31/23 12/31/23 22:59 06:59 14:59 Intake Total 107.162 50 Balance 107.162 50 Intake: IV 50 Intake, IV Titration 107.162 Amount Heparin Sod,Pork in 0.45% 107.162 NaCl 25,000 unit In 0.45 % NaCl 1 250ml.bag @ 12 UNITS/KG/HR 7.457 mls/hr IV .Q24H [facility] Rx#: [id number] Results 12/31/23 04:24 12/30/23 13:39 Cardiac Enzymes 12/30/23 12/30/23 12/30/23 Range/Units 13:39 13:39 17:00 AST 37 H (14-36) U/L Troponin I 0.625 H* 1.800 H* (0.000-0.034) ng/mL 12/30/23 Range/Units 22:12 AST (14-36) U/L Troponin I 2.280 H* (0.000-0.034) ng/mL Coagulation 12/30/23 12/30/23 12/30/23 Range/Units 13:39 17:00 22:02 PT 10.4 (10.0-12.5) sec APTT 25.6 25.7 34.8 H (22.0-30.0) sec 12/31/23 Range/Units 04:24 PT (10.0-12.5) sec APTT 90.3 H (22.0-30.0) sec CBC 12/30/23 12/31/23 Range/Units 13:39 04:24 WBC 8.7 (3.8-10.6) k/uL RBC 4.87 (3.80-5.40) m/uL Hgb 15.6 (11.4-16.0) gm/dL Hct 47.6 H (34.0-46.0) % Plt Count 210 187 (150-450) k/uL Comprehensive Metabolic Panel 12/30/23 Range/Units 13:39 Sodium 138 (137-145) mmol/L Potassium 4.6 (3.5-5.1) mmol/L Chloride 109 H (98-107) mmol/L Carbon Dioxide 22 (22-30) mmol/L BUN 19 H (7-17) mg/dL Creatinine 0.63 (0.52-1.04) mg/dL Glucose 100 H (74-99) mg/dL Calcium 9.3 (8.4-10.2) mg/dL AST 37 H (14-36) U/L ALT 35 H (4-34) U/L Alkaline Phosphatase 31 L (38-126) U/L Total Protein 7.2 (6.3-8.2) g/dL Albumin 4.5 (3.5-5.0) g/dL Current Medications Generic Name Dose Route Start Last Admin Trade Name Freq PRN Reason Stop Dose Admin Alprazolam 0.25 mg 12/31/23 07:52 Alprazolam 0.25 Mg Tab PO Q6HR PRN Mild Anxiety Alprazolam 0.5 mg 12/31/23 07:52 Alprazolam 0.5 Mg Tab PO Q6HR PRN Moderate Anxiety Aspirin 81 mg 12/31/23 09:00 12/31/23 08:21 Aspirin 81 Mg PO Not Given DAILY [facility] Atorvastatin Calcium 80 mg 12/31/23 09:00 12/31/23 08:21 Atorvastatin 80 Mg Tab PO Not Given DAILY [facility] Clopidogrel Bisulfate 75 mg 01/01/24 09:00 Clopidogrel 75 Mg Tab PO DAILY [facility] Heparin Sodium (Porcine) 0 unit 12/30/23 23:59 12/31/23 00:14 Heparin Sodium 1,000 Un/Ml (10ml Vl) IV 3,100 unit PER PROTOCOL PRN Administration Low PTT Protocol Heparin Sodium (Porcine) 10, 1,001 mls @ 999 mls/hr 01/01/24 07:00 12/31/23 10:22 000 unit/ Sodium Chloride IRRIGATION 01/01/24 23:00 0 mls ONCE PRN Administration INTRA-OP Heparin Sodium (Porcine) 2,500 250.5 mls @ 250 mls/hr 01/01/24 07:00 12/31/23 10:22 unit/ Sodium Chloride IRRIGATION 01/01/24 23:00 0 mls ONCE PRN Administration INTRA-OP Sodium Chloride 1,000 ml/ IV 1,000 mls @ 62.142 mls/hr 12/31/23 08:00 12/31/23 08:31 Solution IV 62.142 mls/hr .Q16H6M O[facility] Administration 1 ML/KG/HR Isosorbide Mononitrate 30 mg 01/01/24 09:00 Isosorbide Mononitrate Er 30 Mg Tab.Er.24h PO DAILY [facility] Lorazepam 0.5 mg 12/30/23 17:17 12/30/23 17:30 Lorazepam 2 Mg/Ml Inj IV 0.5 mg ONCE PRN Administration Anxiety Metoprolol Tartrate 25 mg 12/30/23 21:00 12/31/23 08:24 Metoprolol Tartrate 25 Mg Tab PO Not Given BID [facility] Morphine Sulfate 4 mg 12/30/23 16:11 Morphine Sulfate 4 Mg/Ml Syringe IV Q4HR PRN Chest Pain Nitroglycerin 0.4 mg 12/31/23 07:52 Nitroglycerin Sl Tabs 0.4 Mg Tab SUBLINGUAL Q5M PRN Chest Pain Pantoprazole Sodium 40 mg 01/01/24 07:30 Pantoprazole 40 Mg Tablet PO AC-BRKFST OSMAR Intake and Output 12/30/23 12/31/23 12/31/23 22:59 06:59 14:59 Intake Total 107.162 50 Balance 107.162 50 Intake: IV 50 Intake, IV Titration 107.162 Amount Heparin Sod,Pork in 0.45% 107.162 NaCl 25,000 unit In 0.45 % NaCl 1 250ml.bag @ 12 UNITS/KG/HR 7.457 mls/hr IV .Q24H [facility] Rx#: [id number] 12/31/23 04:24 12/30/23 13:39
--- NOTE | 2023-12-31 15:51 | CA ---
Transthoracic Echo Report Name: Brooklynn Guevara Age: 63 Gender: F : 1960 Exam Date: 12/31/2023 08:57 Exam Location: [facility] Ht (in): 67 Wt (lb): 137 Ordering Physician: Adriano Chairez DO Attending/Referring Phys: [id number], [place] Mannequin Refinisher Nancy Jara RDCS Procedure CPT: Indications: nstemi Cardiac Hx: Technical Quality: Fair Contrast 1: Definity Total Dose (mL): 2 Contrast 2: Total Dose (mL): MEASUREMENTS (Male / Female) Normal Values 2D ECHO LV Diastolic Diameter PLAX 5.3 cm 4.2 - 5.9 / 3.9 - 5.3 cm LV Systolic Diameter PLAX 3.5 cm IVS Diastolic Thickness 0.9 cm 0.6 - 1.0 / 0.6 - 0.9 cm LVPW Diastolic Thickness 1.0 cm 0.6 - 1.0 / 0.6 - 0.9 cm LV Relative Wall Thickness 0.4 LVOT Diameter 2.0 cm LV Diastolic Volume MOD BP 126.1 cm??? 67 - 155 / 56 - 104 cm??? LV Systolic Volume MOD BP 69.6 cm??? 22 - 58 / 19 - 49 cm??? LV Ejection Fraction MOD BP 44.8 % >= 55 % LV Cardiac Index MOD BP 1584.1 cm???/min???m??? LV Diastolic Volume MOD 4C 126.8 cm??? LV Systolic Volume MOD 4C 67.1 cm??? LV Ejection Fraction MOD 4C 47.1 % LV Cardiac Index MOD 4C 1671.7 cm???/min???m??? LV Diastolic Length 4C 8.4 cm LV Systolic Length 4C 7.8 cm LV Diastolic Volume MOD 2C 124.6 cm??? LV Systolic Volume MOD 2C 68.9 cm??? LV Ejection Fraction MOD 2C 44.7 % LV Cardiac Index MOD 2C 1561.5 cm???/min???m??? LV Diastolic Length 2C 8.5 cm LV Systolic Length 2C 7.4 cm LA Volume 50.5 cm??? 18 - 58 / 22 - 52 cm??? LA Volume Index 29.5 cm???/m??? 16 - 28 cm???/m??? DOPPLER AV Peak Velocity 154.4 cm/s AV Peak Gradient 9.5 mmHg AV Mean Velocity 115.3 cm/s AV Mean Gradient 5.8 mmHg AV Velocity Time Integral 35.9 cm LVOT Peak Velocity 116.4 cm/s LVOT Peak Gradient 5.4 mmHg LVOT Velocity Time Integral 24.7 cm LVOT Stroke Volume 76.5 cm??? LVOT Stroke Volume Index 44.4 ml/m??? LVOT Cardiac Index 2143.2 cm???/min???m??? AV Area Cont Eq vti 2.1 cm??? AV Area Cont Eq pk 2.3 cm??? MV Area PHT 4.9 cm??? Mitral E Point Velocity 69.9 cm/s Mitral A Point Velocity 52.2 cm/s Mitral E to A Ratio 1.3 MV Deceleration Time 154.7 ms TR Peak Velocity 244.6 cm/s TR Peak Gradient 23.9 mmHg Right Atrial Pressure 5.0 mmHg Pulmonary Artery Systolic Pressu 28.9 mmHg Right Ventricular Systolic Press 28.9 mmHg PV Peak Velocity 89.6 cm/s PV Peak Gradient 3.2 mmHg FINDINGS Left Ventricle Left ventricular ejection fraction is estimated at 30-35 %. Moderately increased left ventricular diastolic volume. Moderately increased left ventricular systolic volume. Moderately decreased left ventricular ejection fraction. Akinetic apex. Right Ventricle Normal right ventricular size and function. Right ventricular systolic pressure within normal limits. Right Atrium Normal right atrial size. Left Atrium Mildly increased left atrial volume. Mitral Valve Structurally normal mitral valve. No evidence for mitral valve prolapse. No mitral stenosis. Trace mitral regurgitation. Aortic Valve Trileaflet aortic valve. No aortic stenosis. Trace aortic regurgitation. Tricuspid Valve Structurally normal tricuspid valve. No tricuspid stenosis. Mild tricuspid regurgitation. Pulmonic Valve Structurally normal pulmonic valve. No pulmonic stenosis. Mild pulmonic regurgitation. Pericardium Trace anterior pericardial effusion. Aorta Aortic annulus normal. CONCLUSIONS Left ventricular ejection fraction 30-35% with apical hypokinesis and basal sparing. May be consistent with Takotsubo's vs ischemic cardiomyopathy RVSP 29 Trace mitral regurgitation Mild tricuspid regurgitation Previewed by: Dr. Mario Covington DO (Electronically Signed) Final Date: 31 December 2023 15:50
--- NOTE | 2023-12-31 17:20 | P.HPIM ---
History of Present Illness History of present illness; 63-year-old female with a past medical history of GERD presents with complaints of chest pain and shortness of breath. Patient reports yesterday she was doing some heavy lifting and when she finished she sat down in her car and was sweating profusely. Patient reports after the sweating started she also started to feel dizzy as well as having a squeezing chest pain that was located more to the left of the chest and did not radiate anywhere. Patient reports taking deep slow breaths relieved some of the chest pain but when she would stop breathing in such a manner the chest pain and squeezing sens ation on her chest would resume. Patient reports at this time she became worried and decided to call 911. Family history: CAD Social history: Admits to being current cigarette smoker with occasional marijuana use but denies any alcohol use. Surgical history: , hysterectomy, abdominoplasty, and left knee arthroscopy Initial lab work from the ER was significant for WBC 8.7, hemoglobin 15.6, MCV 97.8, AST 37, ALT 35, troponin 2.280. EKG done in the ER showed heart rate of 52 bpm, no ST segment elevation or depression seen, no T-wave inversions seen. Sinus bradycardia, possible left atrial enlargement, QTc 443. ER CXR: Minimal right costophrenic angle pleural effusion. Patient admitted to internal medicine service REVIEW OF SYSTEMS: CONSTITUTIONAL: No fever, no malaise, no fatigue. HEENT: No recent visual problems or hearing problems. Denied any sore throat. CARDIOVASCULAR: Admits to chest pain orthopnea, PND, no palpitations, no syncope. PULMONARY: Admits to shortness of breath, no cough, no hemoptysis. GASTROINTESTINAL: No diarrhea, no nausea, no vomiting, no abdominal pain. NEUROLOGICAL: No headaches, no weakness, no numbness. HEMATOLOGICAL: Denies any bleeding or petechiae. GENITOURINARY: Denies any burning micturition, frequency, or urgency. MUSCULOSKELETAL/RHEUMATOLOGICAL: Denies any joint pain, swelling, or any muscle pain. ENDOCRINE: Denies any polyuria or polydipsia. The rest of the 14-point review of systems is negative. PHYSICAL EXAMINATION: GENERAL: The patient is alert and oriented x3, not in any acute distress. Well developed, well nourished. HEENT: Pupils are round and equally reacting to light. EOMI. No scleral icterus. No conjunctival pallor. Normocephalic, atraumatic. No pharyngeal erythema. No thyromegaly. CARDIOVASCULAR: S1 and S2 present. No murmurs, rubs, or gallops. PULMONARY: Chest is clear to auscultation b/l, no wheezing or crackles. ABDOMEN: Soft, nontender, nondistended, normoactive bowel sounds. No palpable organomegaly. MUSCULOSKELETAL: No joint swelling or deformity. EXTREMITIES: No cyanosis, clubbing, or pedal edema. NEUROLOGICAL: Gross neurological examination did not reveal any focal deficits. SKIN: No rashes. Assessment & Plan: Acute: #NSTEMI: Scheduled for cardiac cath Troponins on admission 0.65--> 1.8--> 2.28 Cardio on consult, appreciate further recommendations Continue heparin drip, metoprolol 25 mg twice daily, nitroglycerin 0.04 mg sublingual Q5 as needed Chronic: F: None E: None N: N.p.o. for cardiac cath A: Normally ambulates unassisted at home DVT ppx: Heparin drip GI ppx: Protonix 40 mg p.o. once daily Dispo: Pending clinical course Yandel Michaels MD PGY-1 FM Dictation was produced using ME[employer] Real-Time dictation software. please excuse any grammatical, word or spelling errors. Past Medical History Past Medical History: GERD/Reflux Additional Past Medical History / Comment(s): hiatal hernia, states right abd pain, occasional constipation History of Any Multi-Drug Resistant Organisms: None Reported Past Surgical History: Section, Hysterectomy, Orthopedic Surgery Additional Past Surgical History / Comment(s): ABDOMINALPLASTY, LEFT KNEE ARTHROSCOPy Past Anesthesia/Blood Transfusion Reactions: No Reported Reaction Additional Past Anesthesia/Blood Transfusion Reaction / Comment(s): sometimes her muscles ache-feels like she was ran over Past Psychological History: No Psychological Hx Reported Smoking Status: Current every day smoker Past Alcohol Use History: None Reported Past Drug Use History: Marijuana - Past Family History Mother Family Medical History: Deep Vein Thrombosis (DVT) Father Family Medical History: Cancer Medications and Allergies Home Medications Medication Instructions Recorded Confirmed Type Aspirin 81 mg PO DAILY #60 tab 12/31/23 Rx Clopidogrel [Plavix] 75 mg PO DAILY #60 tablet 12/31/23 Rx Isosorbide Mononitrate ER [Imdur] 30 mg PO DAILY #60 tab 12/31/23 Rx Metoprolol Tartrate [Lopressor] 12.5 mg PO BID 30 Days #60 tablet 12/31/23 Rx Allergies Allergy/AdvReac Type Severity Reaction Status Date / Time codeine phosphate Allergy Severe Itching Verified 12/30/23 14:27 [From Tylenol-Codeine #3] tramadol Allergy Mild Itching Verified 12/30/23 14:27 Physical Exam Vitals: Vital Signs Temp Pulse Resp BP Pulse Ox 12/31/23 06:36 56 L 16 106/68 95 12/31/23 04:00 53 L 16 105/74 95 12/30/23 23:43 56 L 16 111/75 96 12/30/23 21:07 56 L 18 12/30/23 20:14 68 22 110/70 98 12/30/23 18:00 65 20 107/68 97 12/30/23 17:33 63 22 118/67 98 12/30/23 12:24 97.7 F 51 L 18 127/66 97 Intake and Output 12/30/23 12/31/23 12/31/23 22:59 06:59 14:59 Intake Total 107.162 Balance 107.162 Intake: Intake, IV Titration 107.162 Amount Heparin Sod,Pork in 0.45% 107.162 NaCl 25,000 unit In 0.45 % NaCl 1 250ml.bag @ 12 UNITS/KG/HR 7.457 mls/hr IV .Q24H [facility] Rx#: [id number] Results CBC & Chem 7: 12/31/23 04:24 12/30/23 13:39 Labs: Abnormal Lab Results - Last 24 Hours (Table) 12/30/23 12/30/23 12/30/23 Range/Units 13:39 13:39 13:39 Hct 47.6 H (34.0-46.0) % APTT (22.0-30.0) sec Chloride 109 H (98-107) mmol/L BUN 19 H (7-17) mg/dL Glucose 100 H (74-99) mg/dL AST 37 H (14-36) U/L ALT 35 H (4-34) U/L Alkaline Phosphatase 31 L (38-126) U/L Troponin I 0.625 H* (0.000-0.034) ng/mL 12/30/23 12/30/23 12/30/23 Range/Units 17:00 22:02 22:12 Hct (34.0-46.0) % APTT 34.8 H (22.0-30.0) sec Chloride (98-107) mmol/L BUN (7-17) mg/dL Glucose (74-99) mg/dL AST (14-36) U/L ALT (4-34) U/L Alkaline Phosphatase (38-126) U/L Troponin I 1.800 H* 2.280 H* (0.000-0.034) ng/mL 12/31/23 Range/Units 04:24 Hct (34.0-46.0) % APTT 90.3 H (22.0-30.0) sec Chloride (98-107) mmol/L BUN (7-17) mg/dL Glucose (74-99) mg/dL AST (14-36) U/L ALT (4-34) U/L Alkaline Phosphatase (38-126) U/L Troponin I (0.000-0.034) ng/mL
--- NOTE | 2023-12-31 17:31 | P.DS ---
Providers Date of admission: 12/30/23 16:14 Attending physician: Alysia Melvin Consults: 12/30/23 16:11 Consult Physician Urgent Consulting Provider: Severino Haynes Consult Reason/Comments: nstemi Do you want consulting provider notified?: Yes Primary care physician: Fabricio Fernandez Hospital Course: Discharge Diagnosis: Non- STEMI Sinus bradycardia Nicotine dependence Occasional marijuana use Hospital Course: History of present illness; 63-year-old female with a past medical history of GERD presents with complaints of chest pain and shortness of breath. Patient reports yesterday she was doing some heavy lifting and when she finished she sat down in her car and was sweating profusely. Patient reports after the sweating started she also started to feel dizzy as well as having a squeezing chest pain that was located more to the left of the chest and did not radiate anywhere. Patient reports taking deep slow breaths relieved some of the chest pain but when she would stop breathing in such a manner the chest pain and squeezing sensation on her chest would resume. Patient reports at this time she became worried and decided to call 911. Family history: CAD Social history: Admits to being current cigarette smoker with occasional marijuana use but denies any alcohol use. Surgical history: , hysterectomy, abdominoplasty, and left knee arthroscopy Initial lab work from the ER was significant for WBC 8.7, hemoglobin 15.6, MCV 97.8, AST 37, ALT 35, troponin 2.280. EKG done in the ER showed heart rate of 52 bpm, no ST segment elevation or depression seen, no T-wave inversions seen. Sinus bradycardia, possible left atrial enlargement, QTc 443. ER CXR: Minimal right costophrenic angle pleural effusion. While admitted patient received an echocardiogram which showed EF 30 to 35% with apical hypokinesis and basal sparing which may be consistent with Takotsubo's versus ischemic cardiomyopathy, RVSP 29, trace mitral regurg, and mild tricuspid regurg. 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 As communicated to me by the nurse, Dr. Vences approved for the patient to be discharged from a cardiac standpoint as long as she was on the aforementioned medication regiment. Dr. Vences was made aware that the patient has severe allergies to statins and would not be able to take those. The patient will be discharged on aspirin 81 mg p.o. daily, Imdur 30 mg p.o. daily, Plavix 75 mg p.o. daily, and metoprolol to tartrate 12.5 mg p.o. twice daily. Patient is medically and hemodynamically stable for discharge. Patient is advised to follow-up with her PCP and knitter helper. Pt seen and examined at bedside: Patient sitting up in bed eager to leave the hospital. No current complaints. Vital signs reveiwed and stable: General: non toxic, no distress, appears at stated age, normal weight Derm: no unusual rashes/lesions, warm Head: atraumatic, normocephalic, symmetric Eyes: EOMI, no lid lag, anicteric sclera, pupils equal round reactive to light ENT: Nose and ears atraumatic Neck: No cervical lymphadenopathy, trachea midline, supple Mouth: no lip lesion, mucus membranes moist Cardiovascular: S1S2 reg, no murmur, positive dorsalis pedis pulse bilateral, no edema Lungs: Decreased air entry bilaterally, no rhonchi, no rales, no accessory muscle use Abdominal: soft, nontender to palpation, no guarding Ext: muscle strength 5 out of 5 in all 4 extremities grossly, no gross muscle atrophy, no contractures, Neuro: CN II-XI grossly intact, no gross focal neuro deficits Psych: Alert, oriented, appropriate affect A total of greater than 30 minutes were spent preparing this complex discarge summary. Patient was discharged on 12/31/2023, 17: 13. Patient Condition at Discharge: Critical Plan - Discharge Summary New Discharge Prescriptions: New Aspirin 81 mg PO DAILY #60 tab Isosorbide Mononitrate ER [Imdur] 30 mg PO DAILY #60 tab Metoprolol Tartrate [Lopressor] 12.5 mg PO BID 30 Days #60 tablet Clopidogrel [Plavix] 75 mg PO DAILY #60 tablet Discharge Medication List Aspirin 81 mg PO DAILY #60 tab 12/31/23 [Rx] Clopidogrel [Plavix] 75 mg PO DAILY #60 tablet 12/31/23 [Rx] Isosorbide Mononitrate ER [Imdur] 30 mg PO DAILY #60 tab 12/31/23 [Rx] Metoprolol Tartrate [Lopressor] 12.5 mg PO BID 30 Days #60 tablet 12/31/23 [Rx] Follow up Appointment(s)/Referral(s): Yandel Michaels MD [RESIDENT] - 1 Week Denise Juarez III, MD [STAFF PHYSICIAN] - 1 Week Fabricio Fernandez DO [Primary Care Provider] - 1-2 days Discharge Disposition: HOME SELF-CARE
[2023-12-31] MEDS: METOPROLOL TARTRATE 12.5 MG TAB PO SCH (18:08)
[2023-12-31 18:29] VITALS: BP 149/83; PULSE 109
[2024-01-01] MEDS ORDERED: PANTOPRAZOLE 40 MG TABLET PO SCH (07:30)
[2024-01-01] MEDS ORDERED: CLOPIDOGREL 75 MG TAB PO SCH (09:00)
[2024-01-01] MEDS ORDERED: ISOSORBIDE MONONITRATE ER 30 MG TAB.ER.24H PO SCH (09:00)
== END 2023-12-31 19:09 | disposition home or self-care (01) | DRG 190 ==
LOC: EC 12:13 → 3SCARD 16:14
PROVIDERS: ADMIT Hospitalist; ATTEND Hospitalist
PROC: B2111ZZ Fluoroscopy of Multiple Coronary Arteries using Low Osmolar Contrast (ICD-10-PCS; principal; 2023-12-31 09:00)
PROC: 4A023N7 Measurement of Cardiac Sampling and Pressure, Left Heart, Percutaneous Approach (ICD-10-PCS; principal; 2023-12-31 09:00)
DX: I21.4 Non-ST elevation (NSTEMI) myocardial infarction (principal); F17.210 Nicotine dependence, cigarettes, uncomplicated; R00.1 Bradycardia, unspecified; I25.10 Atherosclerotic heart disease of native coronary artery without angina pectoris; K21.9 Gastro-esophageal reflux disease without esophagitis; I51.81 Takotsubo syndrome; I25.5 Ischemic cardiomyopathy; Z88.5 Allergy status to narcotic agent; Z79.02 Long term (current) use of antithrombotics/antiplatelets; Z79.82 Long term (current) use of aspirin; Z79.899 Other long term (current) drug therapy
CPT/HCPCS: 36415; 71046; 80053; 80061; 83735; 83880; 84484; 85025; 85049; 85610; 85730; 93005; 93306; 93458; 96361; 96365; 96366; 96375; 96376; 99291